=== PATIENT | female | born 1975 | race Two or more races ===

== ENCOUNTER 2017-12-05 00:36 | Emergency (ER) | payer MEDICAID ==
[~2017-12-05] VITALS: Ht 170.2 cm; Wt 91.0 kg
[2017-12-05] MEDS ORDERED: ACETAMINOPHEN 325MG TABLET PO STA (00:57)
[2017-12-05] MEDS ORDERED: ASPIRIN 81MG TABLET PO ONE (01:00)
[2017-12-05] MEDS ORDERED: ONDANSETRON HCL 4MG/2ML VIAL IV ONE (01:15)
[2017-12-05] MEDS ORDERED: CLONIDINE 0.1MG TABLET PO ONE (01:15)
[2017-12-05 01:45] LABS: BASOPHILS % 0.5 % (0.0-2.0); EOSINOPHILS % 1.7 % (0.0-5.0); HEMATOCRIT. 39.8 % (36.0-48.0); HEMOGLOBIN. 13.3 g/dL (12.0-16.0); MEAN CORPUSCULAR VOLUME 80.7 fL (81.0-99.0); MEAN PLATELET VOLUME 8.5 fl (7.4-10.4); MONOCYTES % 6.8 % (2.0-8.0); PLATELET 337 x1000/uL (130-400); RED BLOOD CELL COUNT 4.93 mill/uL (4.2-5.4); RED CELL DISTRIBUTION WIDTH 15.1 % (11.6-14.6)
[2017-12-05 01:49] LABS: CHLORIDE 105 mEq/L (98-107)
[2017-12-05 01:53] LABS: ETHANOL BLOOD < 10 mg/dL
[2017-12-05 01:59] LABS: HCG SCREEN NEGATIVE
[2017-12-05 02:11] LABS: INR 0.9; PROTHROMBIN TIME 9.6 sec (9.4-11.6)
[2017-12-05 02:33] LABS: CLARITY URINE CLOUDY (CLEAR); COLOR URINE AMBER (YELLOW); KETONES URINE NEGATIVE (NEGATIVE); LEUKOCYTE ESTERASE URINE NEGATIVE (NEGATIVE); NITRITE URINE NEGATIVE (NEGATIVE); OCCULT BLOOD URINE 3+ (NEGATIVE); PH URINE 5.5 (4.5-8.0); PROTEIN URINE NEGATIVE (NEGATIVE); SPECIFIC GRAVITY URINE 1.025 (1.005-1.030); UROBILINOGEN URINE 0.2 E.U./dL (0.2-1.0)
[2017-12-05 02:34] LABS: *AMPHETAMINES SCREEN URINE NEGATIVE (NEGATIVE); *BARBITURATES SCREEN URINE NEGATIVE (NEGATIVE); *BENZODIAZEPINES SCREEN URINE NEGATIVE (NEGATIVE); *COCAINE SCREEN URINE NEGATIVE (NEGATIVE)
[2017-12-05 02:35] LABS: CANNABINOID URINE SCREEN NEGATIVE (NEGATIVE); METHADONE URINE SCREEN NEGATIVE (NEGATIVE); OPIATES URINE SCREEN NEGATIVE (NEGATIVE); PHENCYCLIDINE URINE SCREEN NEGATIVE (NEGATIVE)
[2017-12-05] MEDS ORDERED: HYDROCODONE/ACETAMINOPHEN 5/325MG TABLET PO PRN (06:45)
[2017-12-05] MEDS ORDERED: ACETAMINOPHEN 325MG TABLET PO PRN (06:45)
[2017-12-05] MEDS ORDERED: ONDANSETRON HCL 4MG/2ML VIAL IV PRN (06:45)
[2017-12-05] MEDS ORDERED: CLONIDINE 0.1MG TABLET PO PRN (06:45)
[2017-12-05 08:57] VITALS: BP 147/87
[2017-12-05] MEDS ORDERED: METOPROLOL TARTRATE 25MG TABLET PO SCH (09:00)
[2017-12-05] MEDS ORDERED: ASPIRIN 81MG EC TABLET PO SCH (09:00)
[2017-12-05] MEDS ORDERED: AMLODIPINE 10MG TABLET PO SCH (09:00)
== END 2017-12-05 08:59 | disposition left against medical advice (07) ==
LOC: ER 00:36 → EDBEDREQ 02:55 → SUPCPDRO 06:33 → ENRESERV 08:15 → CANRESERV 08:15 → ER 08:59 → CANBEDREQ 17:08
DX: I10 Essential (primary) hypertension (principal); R51 Headache; R20.0 Anesthesia of skin; Z90.89 Acquired absence of other organs
CPT/HCPCS: 36415; 70450; 71045; 74176; 80053; 80305; 81003; 82962; 83605; 83690; 83880; 84484; 84703; 85025; 85610; 93005; 96374; 99291; G0482; J2405; Z7610